=== PATIENT | female | born 1950 | race Caucasian/White ===

== ENCOUNTER → 2021-03-18 13:24 | Outpatient (CLI) | payer MEDICARE, SELFPAY ==
--- NOTE | ~2021-03-18 | DEXA_ITS ---
Bone Density Report Name: Ronda De La Torre Age: 70 Sex: Female Ethnicity: White Date of : 1950 Indication: osteopenia; height loss; cancer; hysterectomy; postmenopausal Referring Provider: HAL, LISE Study: Bone densitometry was performed. Exam Date: March 18, 2021 Accession number: [id number] Bone Density: Region BMD T-score Z-score Classification AP Spine (L1-L4) 0.860 -1.7 0.5 Osteopenia Femoral Neck (Left) 0.798 -0.5 1.5 Normal Total Hip (Left) 0.782 -1.3 0.3 Osteopenia Femoral Neck (Right) 0.718 -1.2 0.7 Osteopenia Total Hip (Right) 0.825 -1.0 0.7 Normal Total Hip Mean 0.804 -1.2 0.5 Osteopenia World Health Organization criteria for BMD impression classify patients as: Normal (T-score at or above -1.0), Osteopenia (T-score between -1.0 and -2.5), or Osteoporosis (T-score at or below -2.5). Previous Exams: Region Exam Age BMD T-score BMD Change BMD Change Date g/cm2 vs Baseline vs Previous AP Spine(L1-L4) 03/18/2021 70 0.860 -1.7 -0.049* 0.034* 09/03/2018 67 0.826 -2.0 -0.083* -0.064* 12/24/2013 63 0.890 -1.4 -0.019 -0.019 12/20/2010 60 0.909 -1.3 Total Hip(Left) 03/18/2021 70 0.782 -1.3 -0.068* -0.007 09/03/2018 67 0.790 -1.2 -0.061* -0.022 12/24/2013 63 0.811 -1.1 -0.039* -0.039* 12/20/2010 60 0.851 -0.7 Total Hip(Right) 03/18/2021 70 0.825 -1.0 -0.096* -0.023 09/03/2018 67 0.848 -0.8 -0.072* -0.024 12/24/2013 63 0.873 -0.6 -0.048* -0.048* 12/20/2010 60 0.920 -0.2 *Denotes significance at 95% confidence level, LSC for AP Spine = 0.022 g/cm2, LSC for Total Hip = 0.027 g/cm2 Clinical Information Provided by Patient: Has used the following medications: Vitamin D, Calcium Has the following medical conditions: Cancer, Hysterectomy Patient maximum height was 64 Menopause Age: 38 Onset of menses at age 14 Number of children 3 Impression: The patient has low bone mass, based on the Total Spine T-score. No significant bone loss was observed. Discussion: BONE DENSITY IS LOW AT ONE OR MORE SKELETAL SITES. This patient's lowest T-score is low at one or more skeletal sites. It meets the World Health Organization's (WHO) criteria for ?low bone mass? (T-score between -1.0 and -2.5). The patient's 10-year risk of fracture as calculated by [employer] is less than the threshold where pharmacological therapy is recommended by the National Osteoporosis Foundation (NOF). However,
== END ==
PROVIDERS: Visit Provider Nurse Practitioner
DX: M85.88 Other specified disorders of bone density and structure, other site (principal); M85.852 Other specified disorders of bone density and structure, left thigh; M85.851 Other specified disorders of bone density and structure, right thigh
CPT/HCPCS: 77080

== ENCOUNTER 2024-02-05 16:25 | Outpatient (CLI) | payer MEDICARE, SELFPAY ==
--- NOTE | ~2024-02-05 | XR_ITS ---
Clinical Indication: Chronic cough PA and lateral views of the chest: Comparison: None Findings: Calcified right basilar granuloma present. The lungs are otherwise clear, without evidence of focal consolidation or pleural effusion. Cardiomediastinal silhouette is within normal limits. David pineda and soft tissues are unremarkable, aside from right shoulder arthroplasty. Impression: No significant abnormality. Reviewed, dictated and finalized at location . Impression: No significant abnormality.
== END 2024-02-05 16:26 ==
LOC: MICIMG 16:26
PROVIDERS: PCP Nurse Practitioner Family; Visit Provider Nurse Practitioner Family
DX: R05.3 Chronic cough (principal)
CPT/HCPCS: 71046

== ENCOUNTER 2025-03-25 09:17 | Outpatient (CLI) | payer MEDICARE, SELFPAY ==
--- NOTE | ~2025-03-25 | XR_ITS ---
XR chest 2V 03/25/2025 09:33 Indication: Chronic cough Procedure: 2 view chest Comparison: 02/05/2024 Findings: Heart size normal. No focal air space disease, pulmonary edema, pleural effusion or suspect ed pneumothorax. There is calcified granuloma in the right lower lobe. There is a right shoulder arth roplasty. Impression: 1: No acute cardiopulmonary disease Reviewed, dictated and finalized at location B. Impression: 1: No acute cardiopulmonary disease
== END 2025-03-25 09:18 | disposition home or self-care (01) ==
PROVIDERS: PCP Family Medicine; Visit Provider Nurse Practitioner Family
DX: R05.3 Chronic cough (principal)
CPT/HCPCS: 71046